=== PATIENT | male | born 1955 | race Caucasian/White ===

== ENCOUNTER → 2022-11-13 10:52 | Outpatient (BNVA) | payer MEDICARE, OTHER, SELFPAY | PROVIDERS: PCP Family Medicine; Visit Provider Nurse Practitioner Family | DX: R97.20 Elevated prostate specific antigen [PSA] (principal) | CPT/HCPCS: 99202 ==

== ENCOUNTER 2022-11-29 10:10 | Outpatient (REF) | payer MEDICARE, OTHER, SELFPAY ==
--- NOTE | ~2022-11-29 | US_ITS ---
EXAMINATION: US RETROPERITONEAL COMPLETE (RENAL) CLINICAL INFORMATION: Elevated PSA. COMPARISON: None available. TECHNIQUE: Real-time imaging of the kidneys and bladder. Limited visualization due to bowel gas and body habitus. FINDINGS: RIGHT KIDNEY: 11.1 x 5.5 x 4.9 cm (SAG x AP x TRV). No hydronephrosis. No renal calculi. Renal cortical thickness is normal. Limited visualization. LEFT KIDNEY: 11.5 x 5.6 x 4.7 cm (SAG x AP x TRV). No hydronephrosis. No renal calculi. Renal cortical thickness is normal. Limited visualization. Left 1.3 x 1.1 x 1.0 cm medial midpole cyst appears simple. There is no indication for follow-up imaging. BLADDER: Well distended. Bladder wall thickening of 0.8 cm. Diffuse irregularity of the bladder wall. Bilateral ureteral jets are demonstrated. Prevoid bladder volume is 154.1 mL. Postvoid bladder volume is 8.9 mL. ADDITIONAL FINDINGS: Prostate volume is 58.5 mL. US/US retroperitoneal comp IMPRESSION: Bladder wall thickening of 0.8 cm. Diffuse irregularity of the bladder wall.
== END 2022-11-29 10:11 | disposition home or self-care (01) ==
LOC: HO.US 10:10
PROVIDERS: PCP Family Medicine; Visit Provider Nurse Practitioner Family
DX: R97.20 Elevated prostate specific antigen [PSA] (principal)
CPT/HCPCS: 76770

== ENCOUNTER 2023-01-09 08:29 | Outpatient (AMB) | payer MEDICARE, OTHER, SELFPAY ==
--- NOTE | 2023-01-09 08:30 | A.OFFVIS_ITS ---
Intake Intake Visit Reasons: 1m/US/psa(set) Intake Note: Patient is present for follow up visit elevated psa (psa 7.7) Urology Medications: none Blood Thinners: none Sound Recordist Required: No Accompanied by: Self / Same As Patient Allergies No Known Allergies Allergy (Verified 01/09/23 10:46) Medication List - Last Reconciled 01/09/23 by GALINA De La Fuente- ascorbic acid (vitamin C) ER 1,000 mg PO DAILY atorvastatin 40 mg PO DAILY cholecalciferol (vitamin D3) 25 mcg PO DAILY levofloxacin 500 mg PO daily 3 days losartan 100 mg PO DAILY multivitamin 1 tab PO DAILY omeprazole 40 mg PO DAILY HPI HPI Comments History of Present Illness Details Idris is a pleasant 67 year old male patient of Dr. Cortes. He has a PMH of BPH, former smoker, hypertension, and mixed hyperlipidemia. He presents to the office today for follow-up. When asked he reports to be doing and feeling well. Of note, patient was seen approximately 2 months ago as a new patient for elevated PSA at which time a retroperitoneal ultrasound and redraw of PSA was ordered. These results were reviewed with the patient today. Right kidney with no calculi or hydronephrosis noted. Left kidney with no calculi or hydronephrosis. Left medial mid pole cyst appears simple. There is no indication for follow up of cyst per radiology report. The bladder is well distended. Bladder wall thickening of 0.8 cm. Diffuse irregularity of the bladder wall. Pre void bladder volume is approximately 150 mL. Postvoid bladder volume is approximately 10 mL. Prostate volume is approximately 60 mL. PSAs are as follows 08/26/21--5.4 11/18/2021--6.7 03/24/2022--6.1 12/2022--7.7 When asked patient reports to have followed up with [facility] the spring of last year at which time he believes he underwent a prostate biopsy. However, call to patient's Deyanira over the phone who states she believes it was a JEANA. When asked patient does report urinary frequency, urinary urgency and nocturia. However he reports this is not bothersome to him at this time. He denies incontinence, hematuria, dysuria, foul smelling urine, changes to urinary stream, flank pain, fever, and or chills. He is happy with his current voiding parameters. Discussed at length potential causes for elevated PSA. Discussed trial of finasteride versus prostate biopsy versus surveillance monitoring. Discussed risks and benefits of asformentioned interventions. JEANA offered however declined. Discussed bladder wall thickening and trial of medication however patient declines at this time. He otherwise offers no issues or concerns at this time. [facility]LY [facility] Medical History Benign localized hyperplasia of prostate with urinary obstruction and lower urinary tract symptoms BPH with elevated PSA Colon polyp Elevated PSA measurement Former smoker Hypertension Impaired fasting glucose Mixed hyperlipidemia Obesity Sexual dysfunction Surgical History History of knee surgery History of tonsillectomy and adenoidectomy Review of Systems Const All systems reviewed & are unremarkable except as noted in HPI and below Reports no additional complaints Eyes Reports no additional complaints ENT Reports no additional complaints Card Reports no additional complaints Physical Exam Const General: cooperative, healthy appearing, comfortable, no acute distress, well developed, alert and awake Orientation/consciousness: patient oriented x3 Limitations: no limitations HEENT Head: Yes normal to inspection, Yes normocephalic and Yes atraumatic Ears: hearing grossly normal bilaterally Eyes General: appearance normal, both eyes and all related structures Neck Neck: Yes normal visual inspection and Yes trachea midline Chest Chest palpation & inspection: normal inspection of the chest Resp Effort & Inspection: normal respiratory effort and able to speak in complete sentences Cardio Rate: regular rate GI Inspection: Yes normal to inspection General: Yes no CVA tenderness Back/Spine/Pelvis Back: no CVA tenderness Skin General skin exam: no rashes or lesions noted Neuro General: patient oriented x3 Extrem General: Yes normal to inspection Psych Appearance: grossly normal and well kempt Mental Status: mental status grossly normal Speech and movement: Normal speech and movement present and Clear speech present Affect: normal affect Attitude: cooperative Thought process: Normal thought process present Thought content: Normal thought content present Insight: Good insight present (Psych) Judgement: Good judgement present (Psych) Results AMB Urinalysis, Automated UA Leukoctes 0 Steven/uL Last Edit by Kianna Mayfield on 01/09/23 08:42 UA Nitrite Negative Last Edit by Kianna Mayfield on 01/09/23 08:42 UA Urobilinogen 0.2 mg/dL Last Edit by Kianna Mayfield on 01/09/23 08:42 UA Protein 15 mg/dL Last Edit by Kianna Mayfield on 01/09/23 08:42 UA pH 7.5 Last Edit by Kianna Mayfield on 01/09/23 08:42 UA Blood 0 Enoch/uL Last Edit by Kianna Mayfield on 01/09/23 08:42 UA Specific [place] 1.010 Last Edit by Kianna Mayfield on 01/09/23 08:42 UA Ketone Negative Last Edit by Kianna Mayfield on 01/09/23 08:42 UA Bilirubin 0 mg/dL Last Edit by Kianna Mayfield on 01/09/23 08:42 UA Glucose 0 mg/dL Last Edit by Kianna Mayfield on 01/09/23 08:42 Results Reviewed Results Reviewed: Laboratory Last Values Urine pH (Auto) 7.5 01/09/23 08:34 Specific [place] (Auto) 1.010 01/09/23 08:34 Urine Protein (Auto) 15 mg/dL 01/09/23 08:34 Glucose (UA)(Auto) 0 mg/dL 01/09/23 08:34 Urine Ketones (Auto) Negative 01/09/23 08:34 Urine Blood (Auto) 0 Enoch/uL 01/09/23 08:34 Urine Nitrite (Auto) Negative 01/09/23 08:34 Urine Bilirubin (Auto) 0 mg/dL 01/09/23 08:34 Urine Urobilinogen (Auto) 0.2 mg/dL 01/09/23 08:34 Leukocyte Esterase (Auto) 0 Steven/uL 01/09/23 08:34 Date of Service: 11/29/22 EXAMINATION: US RETROPERITONEAL COMPLETE (RENAL) FINDINGS: RIGHT KIDNEY: 11.1 x 5.5 x 4.9 cm (SAG x AP x TRV). No hydronephrosis. No renal calculi. Renal cortical thickness is normal. Limited visualization. LEFT KIDNEY: 11.5 x 5.6 x 4.7 cm (SAG x AP x TRV). No hydronephrosis. No renal calculi. Renal cortical thickness is normal. Limited visualization. Left 1.3 x 1.1 x 1.0 cm medial midpole cyst appears simple. There is no indication for follow-up imaging. BLADDER: Well distended. Bladder wall thickening of 0.8 cm. Diffuse irregularity of the bladder wall. Bilateral ureteral jets are demonstrated. Prevoid bladder volume is 154.1 mL. Postvoid bladder volume is 8.9 mL. ADDITIONAL FINDINGS: Prostate volume is 58.5 mL. IMPRESSION: Bladder wall thickening of 0.8 cm. Diffuse irregularity of the bladder wall. Assessment & Plan Assessment & Plan (1) Elevated PSA measurement: Code(s): R97.20 - Elevated prostate specific antigen [PSA] (2) Bladder wall thickening: Code(s): N32.89 - Other specified disorders of bladder (3) Benign prostatic hyperplasia with nocturia: Code(s): N40.1 - Benign prostatic hyperplasia with lower urinary tract symptoms; R35.1 - Nocturia (4) Renal cyst: Code(s): N28.1 - Cyst of kidney, acquired Plan: Plan Risks and benefits regarding trans rectal ultrasound with prostate biopsy were discussed.? Options of continued surveillance, no treatment and biopsy were offered. The risks include but are not limited to, urinary tract infection, sepsis, difficulty urinating, bleeding into the rectum or bladder that requires intervention and transfusion,and failure to diagnose prostate cancer. The patient understands the options and the risks involved. They wish to proceed. Printed information was provided to ensure he remains off anticoagulation for the appropriate length of time. He may require cardiology or PCP clearance.? An antibiotic will be administered prior to, and following the procedure Plan In office urinalysis results reviewed with the patient today; as noted above. Recent retroperitoneal ultrasound results reviewed with the patient today. Recent PSA results reviewed with the patient today. Discussed at length potential causes for elevated PSA Discussed at length finasteride versus prostate biopsy versus surveillance monitoring; discussed risks and benefits of these interventions Patient reports urinary frequency, urinary urgency, and nocturia however these symptoms are not bothersome at this time Discussed bladder wall thickening and irregularity noted on ultrasound Will schedule for prostate biopsy as discussed Antibiotic prescription provided; discussed taking antibiotics day before, day of, and day after procedure Follow-up prostate biopsy with Dr. Moya; or sooner with any issues, concerns, and or questions. Orders: Orders AMB Urinalysis Automated Today Z13.9 - Encounter for screening, unspecified Medications: New levofloxacin take 1 tablet day before procedure, 1 tablet day of procedure and 1 tablet day after procedure 500 mg PO daily 3 days 3 tabs 0RF Patient Instructions: The patient had an opportunity to ask questions regarding the treatment plan. All questions were answered. Physical exam, labs, and imaging were discussed and reviewed in detail. As well as risks, benefits, and discussion of treatment choices. No major barriers to understanding were identified. The patient expressed understanding and agreement with the above treatment plan. The patient was made aware they should contact our office by phone for worsening of their current condition, the appearance of new symptoms, or with any questions or concerns. Compliance is encouraged with any medications and follow up testing that is ordered. It is a privilege to be allowed the opportunity to participate in? your urological care.? Again, if you have any questions or concerns If you have any questions or concerns please do not hesitate to contact me. The office is [phone]. This note is constructed using voice recognition software. While every effort has been made to ensure accuracy performing arts technicians errors may have been included. Yours sincerely, RONY De La Fuente Coding Level of Care Code Est Pt Level 4 (07892) Diagnoses Elevated PSA measurement R97.20 Bladder wall thickening N32.89 Benign prostatic hyperplasia with nocturia N40.1; R35.1 Renal cyst N28.1
== END 2023-01-09 09:04 | disposition home or self-care (01) ==
PROVIDERS: PCP Family Medicine; Visit Provider Nurse Practitioner Family
DX: R97.20 Elevated prostate specific antigen [PSA] (principal); N32.89 Other specified disorders of bladder; N40.1 Benign prostatic hyperplasia with lower urinary tract symptoms; R35.1 Nocturia; N28.1 Cyst of kidney, acquired
CPT/HCPCS: 99214

== ENCOUNTER → 2023-01-09 08:29 | Outpatient (BNVA) | payer MEDICARE, OTHER, SELFPAY | PROVIDERS: PCP Family Medicine; Visit Provider Nurse Practitioner Family | DX: R97.20 Elevated prostate specific antigen [PSA] (principal); N40.1 Benign prostatic hyperplasia with lower urinary tract symptoms; R35.1 Nocturia; N32.89 Other specified disorders of bladder; N28.1 Cyst of kidney, acquired | CPT/HCPCS: 99212 ==

== ENCOUNTER 2023-03-15 07:17 | Outpatient (REF) | payer MEDICARE, OTHER, SELFPAY ==
[2023-03-15 07:40] VITALS: BMI 30.3
[2023-03-15 07:41] VITALS: BP 155/77; PULSE 89; RESP 16; TEMP 36.3; O2SAT 98
--- NOTE | 2023-03-15 08:38 | W.PM.OPN ---
Operative Note Operative Note Date of Service: 03/15/23 Narrative: Preoperative diagnosis: Elevated PSA Postoperative diagnosis: Elevated PSA Procedure: 1. transrectal ultrasound measurement of prostate 2. transrectal ultrasound-guided pudendal nerve block 3. transrectal ultrasound-guided prostate biopsy 12 core Surgeon: Dr. Yasmany Moya Anesthetic: Local Indications for procedure: Elevated PSA 7.7 Procedure: After informed consent was verified, the patient was brought into the procedure area and lay left-hand side down on the table. Patient identity confirmed. Perioperative antibiotics confirmed. Safety pause time out performed. JEANA performed to dilate rectal sphincter Iodine 10cc with Gel was placed per rectum Ultrasound probe was placed per rectum The prostate was measured in 3 dimensions Total volume equals 80 gm No cystic structures were noted No calcifications were noted at the surgical margin The prostate was otherwise homogeneous in nature An ultrasound-guided pudendal nerve block was performed using 10 cc of 1% lidocaine. 8 cc was placed at the base and 2 cc of the apex. A 12 core biopsy was performed with 6 cores each side. Two cores were taken at the apex, mid and base. Cores were spaced between lateral and medial. He tolerated the procedure well. Was able to ambulate to bathroom after 5 minutes. Printed instructions regarding antibiotic use and common side effects such as low-grade temperature, potential infection and bleeding were given Pathology: 12 core prostate biopsy.
[2023-03-15 08:46] VITALS: BP 139/76; PULSE 95; RESP 16; O2SAT 99
== END 2023-03-15 07:18 | disposition home or self-care (01) ==
LOC: HO.MS 07:17
PROVIDERS: PCP Family Medicine; Visit Provider Urology
PROC: (CPT 55700; principal; 2023-03-15 08:00)
DX: C61 Malignant neoplasm of prostate (principal); N42.31 Prostatic intraepithelial neoplasia; R97.20 Elevated prostate specific antigen [PSA]
CPT/HCPCS: 55700; 76942; 88305

== ENCOUNTER → 2023-03-15 07:17 | Outpatient (BNV) | payer MEDICARE, OTHER, SELFPAY | PROVIDERS: PCP Family Medicine; Visit Provider Urology | DX: R97.20 Elevated prostate specific antigen [PSA] (principal) | CPT/HCPCS: 55700; 76942 ==

== ENCOUNTER 2023-03-28 12:47 | Outpatient (AMB) | payer MEDICARE, OTHER, SELFPAY ==
--- NOTE | 2023-03-28 12:52 | A.OFFVIS_ITS ---
Intake Intake Visit Reasons: biopsy results Intake Note: Patient is Present for Telephone Follow Up Urology Med: None Antibiotic Allergy: None Blood Thinner: None Pharamcy: [facility] Allergies No Known Allergies Allergy (Verified 03/28/23 13:09) Medication List - Last Reconciled 03/28/23 by Yasmany Moya MD ascorbic acid (vitamin C) ER 1,000 mg PO DAILY atorvastatin 40 mg PO DAILY cholecalciferol (vitamin D3) 25 mcg PO DAILY finasteride 5 mg PO DAILY 90 days levofloxacin 500 mg PO daily 3 days losartan 100 mg PO DAILY multivitamin 1 tab PO DAILY omeprazole 40 mg PO DAILY HPI HPI Comments History of Present Illness Details Idris is a pleasant male. He is a patient of Dr. Cortes. He is seen for the following urologic conditions - elevated PSA - prostate cancer Telemedicine Evaluation 15 min Consultation DoximZapMe Sepideh Video attempted Tolerated biopsy Results discussed Plan on prostate MRI and prostate cancer genetics Start finasteride 4 month follow-up labs Prostate Cancer - Low volume, Grade Group 3 (Intermediate Risk) 03/19 PSA diagnosis 7.7 Size on TRUS 80 g BPH with diffuse thickening of bladder wall Histologic type: Adenocarcinoma, acinar type Histologic grade: [place] score: 4+3=7 20% single core Number cores positive: 1 Total number of cores: 12 % of tissue involved: Less than 5% of all tissue examined Periprostatic fat inv. LVI, PNI : Not identified Prostate Cancer Therapy Discussion today focused on treatment options for prostate cancer. The patient has already reviewed educational materials that had been provided to him in printed form. The NCCN criteria for imaging, molecular testing and germ line testing were discussed. Prognostic Model Information calculated using STAR-CAPS [email or web address] Stage Prediction IIA 5yr Specific Mortality 0.9% 10yr Specfic Mortality 3.3% The discussion was then focused on therapeutic options which include 1) Deferred therapy/active surveillance. Recommended in the setting of low volume, very low risk and low risk disease. Criteria include 3 cores all less, same side, no core greater than 50% disease. Evaluation may be augmented with imaging such as pelvic MRI and genetic evaluation of biopsy material. Somatic tissue genetic testing such as Prolaris, which focuses on tumor-specific pathogenic variants that may identify an indication for further germline testing and can guide therapeutic decisions in the setting of low risk and low volume disease. - The patient is a candidate for active surveillance. NCCN Prostate Cancer Guideline 4.2022 PROS-F Page 2 PRINCIPLES OF ACTIVE SURVEILLANCE AND OBSERVATION Confirmatory Testing to Establish Appropriateness of Active Surveillance: - Goals of confirmatory testing are to h elp facilitate early identification of those patients who may be at a higher risk of future grade reclassification or cancer progression. - Since an initial prostate biopsy may u nderestimate tumor grade or volume, confirmatory testing is strongly recommended within the first 6 to 12 months of diagnosis for patients who are considering active surveillance. - Options for confirmatory testing inclu de prostate biopsy, mpMRI with calculation of PSA density (and repeat biopsy as indicated), and/or molecular tumor analysis, see Principles of Risk Stratification (PROS-D). - Early confirmatory testing may not be necessary in patients who have had an mpMRI prior to diagnostic biopsy. ?All patients should undergo a confirmatory prostate biopsy within 1?2 years of their diagnostic biopsy 2) Targeted Cryotherapy Ablation. The t echnique of cryotherapy was described. PSA free progression rates were discussed. Suitable candidates in general have low volume grade group 1 or grade group 2 disease. Typically pelvic MRI with targeted mapping biopsies are required for treatment planning. - The patient is a candidate for image g uided targeted cryotherapy ablation. 3) Robotic Prostatectomy. Salient featu res of the patient's PSA, [place] score and disease stage were applied to the [facility] [employer] nomogram. Relevant rates of extracapsular extension, seminal vesicle involvement raya involvement with discussed. Pathologic up staging and down staging on final specimen was discussed. Salient features of the procedure, hospitalization and recovery were discussed. - The patient is not a candidate for del otic prostatectomy. 4) Radiation therapy was described. IMR T, hyperfractionated therapy, permanent seed implant with all without concomitant androgen deprivation therapy and rectal protection were discussed. There is a small separation regarding cancer control between radiation and prostatectomy at approximately 15 years. There is an evolving preference for hyper fractionated therapy. This gives the same radiation total dose in a reduced number of individual treatment sessions. This approach is associated with higher risks of rectal bleeding. To ameliorate these risks injection of a spacer gel posterior to the prostate has been advocated. This is only indicated in patients without evidence of extracapsular extension posteriorly, and should be considered with caution where disease is primary grade 4. Brachytherapy was described in detail. Typically this is a same day procedure. Therapy is typically well tolerated and gives good control for low-risk prostate cancer and cancer that does not involve neurovascular invasion. - The patient is a candidate for brachyt herapy or external beam Different risks were described for each therapeutic option. Ranges from the published literature were discussed. Consequent morbidity and treatment to address complications were discussed. These include - robotic prostatectomy - Typically pat ients are in hospital for one day and miss 4 weeks of work. The importance of preoperative walking and Kegel exercises was stressed. Complications, including but not limited to; acute complications regarding blood loss, transfusion, DVT, ileus, wound infection and potential mortality. Long-term complications such as impotence, UTI, urethral stricture, bladder neck contracture, incontinence. Penile shrinkage and chronic pain were discussed and reviewed. - radiation - IMRT typically this takes 25-40 daily treatments administered on a Sunday through Sunday sequence. Treatment is normally well tolerated. associated side effects include urge, frequency, dysuria, hematuria, loose bowels and fatigue, particularly toward the end of therapy. These can be ameliorated to some degree with medication. Long-term risks regarding impotence and a small risk of chronic urinary urge and incontinence were discussed - brachytherapy General anesthesia is us ed. Radioactive seeds are placed. There may be a required planning visit. Risks regarding anesthesia with DVT, PE, infection, urinary retention, urgency, and frequency were discussed. Long-term risks include bladder neck contraction, impotence, urge, potential for secondary cancer of the bladder base The patient has Grade Group 3 pT1c prostate cancer disease Based on the patient's age, comorbidities and personal preferences reasonable treatment options include all options available The patient is not a candidate for germline testing in accordance with the NCCN guideline References: Kimberley RT, Yovani K, Freddy COLE, et al. Development and Validation of a Clinical Prognostic Stage Group System.?[employer]. doi: [email or web address] [facility] Medical History Sexual dysfunction Obesity Mixed hyperlipidemia Impaired fasting glucose Hypertension Former smoker Elevated PSA measurement Colon polyp BPH with elevated PSA Benign localized hyperplasia of prostate with urinary obstruction and lower urinary tract symptoms Surgical History History of tonsillectomy and adenoidectomy History of knee surgery Review of Systems Const All systems reviewed & are unremarkable except as noted in HPI and below Reports no additional complaints Resp Reports no additional complaints GI Reports no additional complaints Reports as per HPI Musc Reports no additional complaints Physical Exam Telemedicine evaluation Appropriate responses Regular breathing rate and rhythm HEENT Head: Yes normal to inspection Ears: hearing grossly normal bilaterally Eyes General: appearance normal, both eyes and all related structures Neck Neck: Yes normal visual inspection Chest Chest palpation & inspection: normal inspection of the chest Resp Effort & Inspection: normal respiratory effort and able to speak in complete sentences Assessment & Plan Assessment & Plan (1) Prostate cancer: Code(s): C61 - Malignant neoplasm of prostate Plan Four month follow-up MRI Prolaris genetic assesment Orders: Orders Prostate Specific Antigen 4 Months C61 - Malignant neoplasm of prostate MR pelvis wo/w con 4 Months C61 - Malignant neoplasm of prostate Blood Urea Nitrogen 4 Months C61 - Malignant neoplasm of prostate Creatinine 4 Months C61 - Malignant neoplasm of prostate Medications: New finasteride 5 mg PO DAILY 90 days 90 tabs 1RF N13.8 - Other obstructive and reflux uropathy, N40.1 - Benign prostatic hyperplasia with lower urinary tract symptoms, R33.9 - Retention of urine, unspecified, R35.1 - Nocturia Patient Instructions: Imaging studies, laboratory and physical exam results were discussed and reviewed in detail. No major barriers to patient understanding were identified. An opportunity to ask questions regarding the treatment plan was provided. All questions were answered. The patient expressed understanding and agreement with the above treatment plan. The patient is aware they should contact our office by phone for worsening of their current condition or the appearance of new urologic symptoms. Compliance is encouraged with any medications and followup testing that is ordered. It is a privilege to participate in the urologic care of your patient. If you have any questions or concerns regarding treatment for the above conditions, or other urologic issues, please do not hesitate to contact me. The office telephone contact is [phone]. This note is constructed using voice recognition software. While every effort has been made to ensure accuracy contact center team lead errors may have been included. Yours sincerely, Dr Yasmany Moya MD, [facility] - Urology Providers of Expert, Compassionate Care for the Genitourinary System Telehealth Telehealth Location of provider rendering services: practice address Location of patient: address on file Patient Identification confirmed using: Name, : Yes Telehealth method: video Patient verbally consented to treatment: Yes Patient verbally consented to billing insurance company: Yes Patient informed of any privacy concerns related to visit: Yes Coding Level of Care Code Tele Est Pt Level 4 (72339) Diagnoses Prostate cancer C61
== END 2023-03-28 15:59 | disposition home or self-care (01) ==
LOC: HO.HUSH 12:47
PROVIDERS: PCP Family Medicine; Visit Provider Urology
DX: C61 Malignant neoplasm of prostate (principal)
CPT/HCPCS: 99214

== ENCOUNTER → 2023-03-28 12:47 | Outpatient (BNVA) | payer MEDICARE, OTHER, SELFPAY | PROVIDERS: PCP Family Medicine; Visit Provider Urology ==

== ENCOUNTER 2023-08-09 12:36 | Outpatient (REF) | payer MEDICARE, OTHER, SELFPAY ==
[2023-08-09 14:02] LABS: Blood Urea Nitrogen 17 mg/dL (9-16); Estimated Glomerular Filt Rate > 60
[2023-08-09 14:20] LABS: Prostate Specific Antigen 3.86 ng/mL (<0.05-4.0)
== END 2023-08-09 12:37 | disposition home or self-care (01) ==
LOC: HO.LAB 12:36
PROVIDERS: PCP Family Medicine; Visit Provider Urology
DX: C61 Malignant neoplasm of prostate (principal); Z12.5 Encounter for screening for malignant neoplasm of prostate
CPT/HCPCS: 36415; 82565; 84153; 84520

== ENCOUNTER 2023-08-14 10:25 | Outpatient (AMB) | payer MEDICARE, OTHER, SELFPAY ==
--- NOTE | 2023-08-14 10:25 | A.OFFVIS_ITS ---
Intake Intake Visit Reasons: MRI/PSA Follow Up(set)vm confirm Allergies No Known Allergies Allergy (Verified 08/14/23 10:25) Medication List - Last Reconciled 08/14/23 by Yasmany Moya MD ascorbic acid (vitamin C) ER 1,000 mg PO DAILY atorvastatin 40 mg PO DAILY cholecalciferol (vitamin D3) 25 mcg PO DAILY finasteride 5 mg PO DAILY 90 days levofloxacin 500 mg PO daily 3 days losartan 100 mg PO DAILY multivitamin 1 tab PO DAILY omeprazole 40 mg PO DAILY HPI HPI Comments History of Present Illness Details Idris is a pleasant male. He is a patient of Dr. Cortes. He is seen for the following urologic conditions - elevated PSA - prostate cancer Telemedicine Evaluation 15 min Consultation [employer] Sepideh Video attempted Four month follow-up PSA has dropped to 3.8 Discussed MRI results - difficult to delineate lesion Discussed Prolaris - unfavorable intermediate recommend single modal therapy how ever 10 year DSM 6.6% Continue surveillance - try 4 months without finasteride Prostate Cancer - Low volume, Grade Group 3 (Intermediate Risk) 03/19 PSA diagnosis 7.7 Size on TRUS 80 g BPH with diffuse thickening of bladder wall MRI - 50 g prostate 9 mm peripheral zone left mid PI-RADS 2 Prolaris - 04/19 - unfavorable intermediate recommend single modal therapy ho wever 10 year DSM 6.6% Histologic type: Adenocarcinoma, acinar type Histologic grade: Cindy score: 4+3=7 20% single core RMM Number cores positive: 1 Total number of cores: 12 % of tissue involved: Less than 5% of all tissue examined Periprostatic fat inv. LVI, PNI : Not identified PFSH Medical History Sexual dysfunction Obesity Mixed hyperlipidemia Impaired fasting glucose Hypertension Former smoker Elevated PSA measurement Colon polyp BPH with elevated PSA Benign localized hyperplasia of prostate with urinary obstruction and lower urinary tract symptoms Surgical History History of tonsillectomy and adenoidectomy History of knee surgery Review of Systems Const All systems reviewed & are unremarkable except as noted in HPI and below Reports no additional complaints Resp Reports no additional complaints GI Reports no additional complaints Reports as per HPI Musc Reports no additional complaints Physical Exam Telemedicine evaluation Appropriate responses Regular breathing rate and rhythm HEENT Head: Yes normal to inspection Ears: hearing grossly normal bilaterally Eyes General: appearance normal, both eyes and all related structures Neck Neck: Yes normal visual inspection Chest Chest palpation & inspection: normal inspection of the chest Resp Effort & Inspection: normal respiratory effort and able to speak in complete sentences Assessment & Plan Assessment & Plan (1) Prostate cancer: Code(s): C61 - Malignant neoplasm of prostate Plan Four month follow-up Orders: Orders PSA,Total (Free>4and<10) 4 Months C61 - Malignant neoplasm of prostate Patient Instructions: Imaging studies, laboratory and physical exam results were discussed and reviewed in detail. No major barriers to patient understanding were identified. An opportunity to ask questions regarding the treatment plan was provided. All questions were answered. The patient expressed understanding and agreement with the above treatment plan. The patient is aware they should contact our office by phone for worsening of their current condition or the appearance of new urologic symptoms. Compliance is encouraged with any medications and followup testing that is ordered. It is a privilege to participate in the urologic care of your patient. If you have any questions or concerns regarding treatment for the above conditions, or other urologic issues, please do not hesitate to contact me. The office telephone contact is [phone]. This note is constructed using voice recognition software. While every effort has been made to ensure accuracy semiconductors wafer breaker errors may have been included. Yours sincerely, Dr Yasmany Moya MD, [facility] - Urology Providers of Expert, Compassionate Care for the Genitourinary System Telehealth Telehealth Location of provider rendering services: practice address Location of patient: address on file Patient Identification confirmed using: Name, : Yes Telehealth method: video Patient verbally consented to treatment: Yes Patient verbally consented to billing insurance company: Yes Patient informed of any privacy concerns related to visit: Yes Coding Level of Care Code Tele Est Pt Level 4 (25411) Diagnoses Prostate cancer C61
== END 2023-08-14 11:26 | disposition home or self-care (01) ==
LOC: HO.HUSH 10:25
PROVIDERS: PCP Family Medicine; Visit Provider Urology
DX: C61 Malignant neoplasm of prostate (principal)
CPT/HCPCS: 99213

== ENCOUNTER → 2023-08-14 10:25 | Outpatient (BNVA) | payer MEDICARE, OTHER, SELFPAY | PROVIDERS: PCP Family Medicine; Visit Provider Urology ==

== ENCOUNTER 2023-12-13 10:15 | Outpatient (AMB) | payer MEDICARE, OTHER, SELFPAY ==
--- NOTE | 2023-12-13 10:28 | MHC.OFFVIS ---
Intake Visit Reasons: 4M PSA(set) Intake Note: Patient presents for follow up on: Elevated PSA PSA: 7.86 Urology Med: None Antibiotic Allergy: None Blood Thinner: None Pharamcy: [employer] Director Required: No Accompanied by: Self / Same As Patient Allergies No Known Allergies Allergy (Verified 12/13/23 10:37) HPI Comments Details: Idris is a pleasant male. He is a patient of Dr. Cortes. He is seen for the following urologic conditions - elevated PSA - prostate cancer PSA 08/18 3.9, 12/18 7.2 7% Restart finasteride Four month follow-up Did discuss targeted therapy Would be good candidate Prostate Cancer - Low volume, Grade Group 3 (Intermediate Risk) 03/19 PSA diagnosis 7.7 Size on TRUS 80 g BPH with diffuse thickening of bladder wall MRI - 50 g prostate 9 mm peripheral zone left mid PI-RADS 2 Prolaris - 04/19 - unfavorable intermediate recommend single modal therapy however 10 year DSM 6.6% Histologic type: Adenocarcinoma, acinar type Histologic grade: [place] score: 4+3=7 20% single core RMM Number cores positive: 1 Total number of cores: 12 % of tissue involved: Less than 5% of all tissue examined Periprostatic fat inv. LVI, PNI : Not identified PFSH Medical History Sexual dysfunction Obesity Mixed hyperlipidemia Impaired fasting glucose Hypertension Former smoker Elevated PSA measurement Colon polyp BPH with elevated PSA Benign localized hyperplasia of prostate with urinary obstruction and lower urinary tract symptoms Surgical History History of tonsillectomy and adenoidectomy History of knee surgery Review of Systems Const Denies chills and Denies fever(s) Card Reports no additional complaints and Denies syncope Resp Denies cough GI Denies abdominal pain and Denies heartburn Reports as per HPI and Denies change in libido Neuro Denies syncope Psych Denies change in libido Endo Denies change in libido Physical Exam Const General: cooperative, healthy appearing, comfortable and no acute distress Orientation/consciousness: patient oriented x3 HEENT Face and sinus: Yes normal facial exam Mouth: moist mucous membranes Neck Neck: Yes normal visual inspection, Yes full ROM and Yes trachea midline Chest Chest palpation & inspection: normal inspection of the chest Resp Effort & Inspection: normal respiratory effort, able to speak in complete sentences and no respiratory distress GI Inspection: Yes normal to inspection Back/Spine/Pelvis Cervical Spine: normal cervical lordosis Thoracic/Lumbar Spine: thoracic and lumbar spine normal to inspection Skin General skin exam: no rashes or lesions noted Neuro General: patient oriented x3, gait normal, tone normal and moves all extremities Extrem General: Yes normal to inspection and Yes capillary refill normal Assessment & Plan Assessment & Plan (1) Prostate cancer: Code(s): C61 - Malignant neoplasm of prostate Category: Medical Plan Four month follow-up PSA Orders: Orders PSA,Total (Free>4and<10) 4 Months N40.1 - Benign prostatic hyperplasia with lower urinary tract symptoms, R35.1 - Nocturia Medications: New finasteride 5 mg PO DAILY 90 days 90 tabs 1RF N13.8 - Other obstructive and reflux uropathy, N40.1 - Benign prostatic hyperplasia with lower urinary tract symptoms, R33.9 - Retention of urine, unspecified, R35.1 - Nocturia Patient Instructions: Imaging studies, laboratory and physical exam results were discussed and reviewed in detail. No major barriers to patient understanding were identified. An opportunity to ask questions regarding the treatment plan was provided. All questions were answered. The patient expressed understanding and agreement with the above treatment plan. The patient is aware they should contact our office by phone for worsening of their current condition or the appearance of new urologic symptoms. Compliance is encouraged with any medications and followup testing that is ordered. It is a privilege to participate in the urologic care of your patient. If you have any questions or concerns regarding treatment for the above conditions, or other urologic issues, please do not hesitate to contact me. The office telephone contact is [phone]. This note is constructed using voice recognition software. While every effort has been made to ensure accuracy application systems engineer errors may have been included. Yours sincerely, Dr Yasmany Moya MD, [facility] - Urology Providers of Expert, Compassionate Care for the Genitourinary System Coding Level of Care Code Est Pt Level 3 (08866) Diagnoses Prostate cancer C61
== END 2023-12-13 10:49 | disposition home or self-care (01) ==
PROVIDERS: PCP Family Medicine; Visit Provider Urology
DX: C61 Malignant neoplasm of prostate (principal)
CPT/HCPCS: 99213

== ENCOUNTER → 2023-12-13 10:15 | Outpatient (BNVA) | payer MEDICARE, OTHER, SELFPAY | PROVIDERS: PCP Family Medicine; Visit Provider Urology | DX: N40.1 Benign prostatic hyperplasia with lower urinary tract symptoms (principal); R33.8 Other retention of urine; N13.8 Other obstructive and reflux uropathy; R35.1 Nocturia; C61 Malignant neoplasm of prostate | CPT/HCPCS: 99212 ==

== ENCOUNTER 2024-04-01 09:11 | Outpatient (REF) | payer MEDICARE, OTHER, SELFPAY ==
[2024-04-01 11:59] LABS: PSA,Total (Free>4and<10) 4.73 ng/mL (0.00-4.00)
== END 2024-04-01 09:12 | disposition home or self-care (01) ==
LOC: HO.LAB 09:11
PROVIDERS: PCP Family Medicine; Visit Provider Urology
DX: N40.1 Benign prostatic hyperplasia with lower urinary tract symptoms (principal); R35.1 Nocturia; Z12.5 Encounter for screening for malignant neoplasm of prostate
CPT/HCPCS: 36415; 84153; 84154

== ENCOUNTER 2024-04-09 09:03 | Outpatient (AMB) | payer MEDICARE, OTHER, SELFPAY ==
--- NOTE | 2024-04-09 09:05 | MHC.OFFVIS ---
Intake Visit Reasons: 4M PSA Free/Total(Pending) Intake Note: Patient is Present for Telephone PSA Follow up Urology Med: Finasteride Antibiotic Allergies: None Blood Thinner: None 04/01/2024 - Total PSA- 4.73(H) Free PSA- Pending %Free PSA- Pending Quill Fixer Required: No Accompanied by: Self / Same As Patient Allergies No Known Allergies Allergy (Verified 04/09/24 09:06) HPI Comments Details: Idris is a pleasant male. He is a patient of Dr. Cortes. He is seen for the following urologic conditions - elevated PSA - prostate cancer Telemedicine Evaluation 15 min Consultation [employer] Sepideh Video PSA has fallen on finasteride over 4 months PSA 08/18 3.9, 12/18 7.2 7%, 04/01 4.6 on Free Move to cycling finasteride Four month follow-up Prostate Cancer - Low volume, Grade Group 3 (Intermediate Risk) 03/19 PSA diagnosis 7.7 Size on TRUS 80 g BPH with diffuse thickening of bladder wall MRI - 08/18 - 50 g prostate 9 mm peripheral zone left mid PI-RADS 2 Prolaris - 04/19 - unfavorable intermediate recommend single modal therapy however 10 year DSM 6.6% Histologic type: Adenocarcinoma, acinar type Histologic grade: [place] score: 4+3=7 20% single core RMM Number cores positive: 1 Total number of cores: 12 % of tissue involved: Less than 5% of all tissue examined Periprostatic fat inv. LVI, PNI : Not identified PFSH Medical History Sexual dysfunction Obesity Mixed hyperlipidemia Impaired fasting glucose Hypertension Former smoker Elevated PSA measurement Colon polyp BPH with elevated PSA Benign localized hyperplasia of prostate with urinary obstruction and lower urinary tract symptoms Surgical History History of tonsillectomy and adenoidectomy History of knee surgery Review of Systems Const All systems reviewed & are unremarkable except as noted in HPI and below Reports no additional complaints Resp Reports no additional complaints GI Reports no additional complaints Reports as per HPI Musc Reports no additional complaints Physical Exam Telemedicine evaluation Appropriate responses Regular breathing rate and rhythm HEENT Head: Yes normal to inspection Ears: hearing grossly normal bilaterally Eyes General: appearance normal, both eyes and all related structures Neck Neck: Yes normal visual inspection Chest Chest palpation & inspection: normal inspection of the chest Resp Effort & Inspection: normal respiratory effort and able to speak in complete sentences Telehealth Telehealth Telehealth Platform: [employer] Location of provider rendering services: practice address Location of patient: address on file Patient Identification confirmed using: Name, : Yes Telehealth method: video Patient verbally consented to treatment: Yes Patient verbally consented to billing insurance company: Yes Patient informed of any privacy concerns related to visit: Yes Minutes spent on Phone/Video with Pt.: 15 Assessment & Plan Assessment & Plan (1) Prostate cancer: Code(s): C61 - Malignant neoplasm of prostate Category: Medical (2) Benign prostatic hyperplasia with nocturia: Code(s): N40.1 - Benign prostatic hyperplasia with lower urinary tract symptoms; R35.1 - Nocturia Category: Medical Plan Four month follow-up Orders: Orders PSA,Total (Free>4and<10) 4 Months C61 - Malignant neoplasm of prostate Patient Instructions: Imaging studies, laboratory and physical exam results were discussed and reviewed in detail. No major barriers to patient understanding were identified. An opportunity to ask questions regarding the treatment plan was provided. All questions were answered. The patient expressed understanding and agreement with the above treatment plan. The patient is aware they should contact our office by phone for worsening of their current condition or the appearance of new urologic symptoms. Compliance is encouraged with any medications and followup testing that is ordered. It is a privilege to participate in the urologic care of your patient. If you have any questions or concerns regarding treatment for the above conditions, or other urologic issues, please do not hesitate to contact me. The office telephone contact is [phone]. This note is constructed using voice recognition software. While every effort has been made to ensure accuracy oil house attendant errors may have been included. Yours sincerely, Dr Yasmany Moya MD, [facility] - Urology Providers of Expert, Compassionate Care for the Genitourinary System Coding Level of Care Code Tele Est Pt Level 3 (79349) Diagnoses Prostate cancer C61 Benign prostatic hyperplasia with nocturia N40.1; R35.1
== END 2024-04-09 09:55 | disposition home or self-care (01) ==
LOC: HO.HUSH 09:03
PROVIDERS: PCP Family Medicine; Visit Provider Urology
DX: C61 Malignant neoplasm of prostate (principal); N40.1 Benign prostatic hyperplasia with lower urinary tract symptoms; R35.1 Nocturia
CPT/HCPCS: 99213

== ENCOUNTER → 2024-04-09 09:03 | Outpatient (BNVA) | payer MEDICARE, OTHER, SELFPAY | PROVIDERS: PCP Family Medicine; Visit Provider Urology ==

== ENCOUNTER 2024-04-29 08:07 | Day surgery (SDC) | payer MEDICARE, OTHER, SELFPAY ==
[2024-04-23 13:30] VITALS: BMI 29.9
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
[2024-04-29 08:54] VITALS: BP 161/77; PULSE 74; RESP 16; TEMP 37; O2SAT 99; BMI 29.7
[2024-04-29] MEDS: Lactated Ringers 1,000 ML 100 ML IVCONT (09:05)
--- NOTE | 2024-04-29 09:58 | MHC.SHP ---
Pre-Procedural Eval Section A - 24 Hr Update-Section A only Date of Service: 04/29/24 The patient is an INPATIENT: No Changes since office visit: No Cold of Flu in the past 2 weeks, No New Medical Problems, No Changes in Medication and No Patient answered all questions The patient has been examined within 24 hours of the surgical procedure. The History & Physical has been completed within 30 days and I have reviewed it.: Yes Section B - Complete if H&P > 30 days Chief Complaint: Encounter for screening for malignant neoplasm of Allergies: Allergies Allergy/AdvReac Type Severity Reaction Status Date / Time No Known Allergies Allergy Verified 04/09/24 09:06 Plan I have reviewed the history and physical and performed a pertinent physical examination on my patient. No changes have occurred unless specified. Time Spent With Patient Time: Total time managing care of this patient today ____ minutes.
[2024-04-29 10:34] VITALS: BP 110/54; PULSE 92; RESP 16; TEMP 36.4; O2SAT 97
[2024-04-29 10:42] VITALS: BP 120/63; PULSE 89; RESP 16; TEMP 36.4; O2SAT 99
--- NOTE | 2024-04-29 10:42 | OP_ITS ---
DATE OF SERVICE: 04/29/2024 SURGEON: Amari Finney MD INDICATIONS: Colon cancer screening. PREOPERATIVE DIAGNOSIS: POSTOPERATIVE DIAGNOSIS: PROCEDURE PERFORMED: Colonoscopy to the terminal ileum with biopsy and snare polypectomy. ESTIMATED BLOOD LOSS: COMPLICATIONS: ANESTHESIA: Monitored anesthesia care. ASSISTANTS: SPECIMENS: DESCRIPTION OF PROCEDURE: A history and physical were performed. The risks and benefits of the procedure were explained to the patient. Informed consent was obtained. The patient was placed in the left lateral decubitus position. A digital rectal exam was performed and was found to be normal. The Olympus pediatric video colonoscope was introduced into the rectum and advanced to the cecum. The cecum was identified by transillumination, palpation, and identification of ileocecal valve. Examination was performed, and the scope was removed. He tolerated the procedure well and was returned to the recovery area in stable condition. FINDINGS: The terminal ileum was examined and appeared normal. The visualized colonic mucosa was normal. The quality of prep was fair with some residual stool streaking the mucosa in the descending and sigmoid colon. This was washed and suctioned as best possible. There was a 2 cm lipoma in the right colon, above the ileocecal valve, which was biopsied. Multiple colonic polyps were identified and removed with a combination of biopsy forceps, cold snare and hot snare. These were located at 80 cm; 60 cm; 2 at 50 cm and 2 in the rectum. The largest rectal polyp measured approximately 10 mm; this appeared hyperplastic. The others were less than 10 mm. There was mild sigmoid diverticulosis. Retroflexed examination showed moderate-sized internal hemorrhoids. IMPRESSION: Colon polyps. RECOMMENDATION: Follow up the biopsy results. MD PHUONG Aponte/JULIANL / [phone]
== END 2024-04-29 11:01 | disposition home or self-care (01) ==
PROVIDERS: PCP Family Medicine; Visit Provider Internal Medicine Gastroenterology
PROC: 0DJD8ZZ Inspection of Lower Intestinal Tract, Via Natural or Artificial Opening Endoscopic (ICD-10-PCS; CPT 45378; principal; 2024-04-29 10:10)
DX: Z12.11 Encounter for screening for malignant neoplasm of colon (principal); Z86.0101 Personal history of adenomatous and serrated colon polyps; D12.4 Benign neoplasm of descending colon; D12.5 Benign neoplasm of sigmoid colon; K62.1 Rectal polyp; D17.5 Benign lipomatous neoplasm of intra-abdominal organs; K57.30 Diverticulosis of large intestine without perforation or abscess without bleeding; K64.8 Other hemorrhoids; K76.0 Fatty (change of) liver, not elsewhere classified; K21.9 Gastro-esophageal reflux disease without esophagitis; I10 Essential (primary) hypertension; E78.5 Hyperlipidemia, unspecified; N40.1 Benign prostatic hyperplasia with lower urinary tract symptoms; R35.1 Nocturia; C61 Malignant neoplasm of prostate; Z79.899 Other long term (current) drug therapy; Z87.891 Personal history of nicotine dependence
CPT/HCPCS: 45385; 45380; 88305; J2003; J2704

== ENCOUNTER 2024-08-13 08:59 | Outpatient (REF) | payer MEDICARE, OTHER, SELFPAY ==
[2024-08-13 11:33] LABS: PSA,Total (Free>4and<10) 6.52 ng/mL (0.00-4.00)
[2024-08-18 11:07] LABS: Free Prostate Spec Ag 1.1 ng/mL; Percent Free Prostate Spec Ag 17 % (calc) (>25); Prostate Specific Ag Total 6.3 ng/mL (< OR = 4.0)
== END 2024-08-13 09:00 | disposition home or self-care (01) ==
LOC: HO.LAB 08:59
PROVIDERS: PCP Family Medicine; Visit Provider Urology
DX: C61 Malignant neoplasm of prostate (principal); Z12.5 Encounter for screening for malignant neoplasm of prostate
CPT/HCPCS: 36415; 84153; 84154

== ENCOUNTER 2024-08-22 09:32 | Outpatient (AMB) | payer MEDICARE, OTHER, SELFPAY ==
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
== END 2024-08-22 10:32 | disposition home or self-care (01) ==
LOC: HO.HUSH 09:33
PROVIDERS: PCP Family Medicine; Visit Provider Urology
DX: C61 Malignant neoplasm of prostate (principal)
CPT/HCPCS: 99213; G2211

== ENCOUNTER → 2024-08-22 09:32 | Outpatient (BNVA) | payer MEDICARE, OTHER, SELFPAY | PROVIDERS: PCP Family Medicine; Visit Provider Urology | DX: C61 Malignant neoplasm of prostate (principal) | CPT/HCPCS: 51798 ==

== ENCOUNTER 2024-12-15 08:43 | Outpatient (REF) | payer MEDICARE, OTHER, SELFPAY ==
--- OUTSIDE RECORDS SUMMARY | 2024-04-29 06:10 | XMS_ITS ---
Author Organization [facility] Address [address] [place] [id number] Care Team Providers Care Irrigation System Installer Name Role Phone ANDERS PECK, RAFAT Primary Care Provider Amari Richard Jr [phone] REASON FOR VISIT screening Encounters Encounter Location Date Provider Diagnosis [facility] [place] [address] [place] [id number] 04/29/2024 Amari Finney Jr Colon cancer screening Z12.11 ; Personal history of colonic polyps Z86.0100 and Colon polyps K63.5 Assessments Encounter Date Diagnosis (ICD Code) Assessment Notes Treatment Notes Treatment Clinical Notes Section Notes 04/29/2024 Colon cancer screening (ICD-10 - Z12.11) 04/29/2024 Personal history of colonic polyps (ICD-10 - Z86.0100) 04/29/2024 Colon polyps (ICD-10 - K63.5) Plan Of Treatment No Information Progress Notes * ALYSIA DERAS RDOB:1955 (69 yo M)Acc No.[id number]:04/29/2024 COLON WITH MAC Patient: ALYSIA NEAL Provider: Raul Finney MD :1955 A ge:68 Y S ex:Male Date:04/29/2024 Address: [id number] Pcp:RAFAT MCNAMARA MD Subjective: * Chief Complaints: * 1 . Screening. * Medical History: Objective: * Vitals: Assessment: * Assessment: 1. C olon cancer screening - Z12.11 (Primary) 2 . P ersonal history of colonic polyps - Z86.0100 3 . C olon polyps - K63.5 Plan: * Treatment: * Procedure Codes: G 0105 COLOREC CANCR SCR; COLNSCPY HI RISK, 25301 LESION REMOVAL COLONOSCOPY, 0529F INTRVL 3+YRS PTS CLNSCP DOCD * * The named appointment provid er may or may not be the originator of this progress note, and it is not deemed complete until electronically signed by the appointment provider. Sign off status: Pending * Provider: Raul Finney MD Date: 1 06/30/2023 Generated for Thierno valladares/Estevan/Samiritting on: 0 12/15/2024 08:50 AM EDT
--- OUTSIDE RECORDS SUMMARY | 2024-12-15 08:50 | XMS_ITS | Clinical Summary ---
Author Organization [facility] Address [address] [place] [phone] Phone Care Team Providers Care Health Care Facilities Inspector Name Role Phone Reddy Cortes DO Primary Care Provider [phone] Allergies Active Allergy Reactions Criticality Noted Date Comments Amlodipine Swelling 10/23/2024 Medications finasteride (PROSCAR) 5 mg tablet Take 5 mg by mouth every 2 (two) months. Active atorvastatin (LIPITOR) 40 MG tablet Take 1 tablet (40 mg total) by mouth daily. 90 tablet 3 10/23/2024 Active losartan (COZAAR) 100 MG tablet Take 1 tablet (100 mg total) by mouth every morning. 90 tablet 3 10/23/2024 Active omeprazole (PRILOSEC) 40 MG capsule Take 1 capsule (40 mg total) by mouth every morning. 90 capsule 3 10/23/2024 Active furosemide (LASIX) 20 MG tablet Take 1 tablet (20 mg total) by mouth daily. 30 tablet 5 10/23/2024 Active Active Problems Problem Noted Date Diagnosed Date Prostate cancer 10/23/2024 Overview (10/23/2024): Followed by urology Dr. Aguayo Adenomatous polyp of colon 10/23/2024 Assessment & Plan (10/23/2024 8:51 AM EDT): Had colonoscopy this year follow-up per GI recommendation Pulmonary nodules 10/23/2024 Assessment & Plan (10/23/2024 8:21 AM EDT): Stable due for LDCT Benign localized hyperplasia of prostate without urinary obstruction 10/21/2024 Lower urinary tract symptoms 10/21/2024 Polyp of colon 10/21/2024 Overview (10/23/2024): followed by Dr Finney Elevated PSA measurement 10/21/2024 Essential hypertension 10/21/2024 Assessment & Plan (10/23/2024 8:50 AM EDT): BP not at goal discussed options due to the edema with amlodipine patient's reluctant to go back on that. DC hydrochlorothiazide Rx for furosemide. Labs today Former smoker 10/21/2024 Assessment & Plan (10/23/2024 8:23 AM EDT): LDCT Impaired fasting glucose 10/21/2024 Overview (10/23/2024): Fasting labs today. Continue work on diet and exercise Assessment & Plan (10/23/2024 8:23 AM EDT): Repeat lab Mixed hyperlipidemia 10/21/2024 Obesity 10/21/2024 Sexual dysfunction 10/21/2024 Encounters Date Type Department Care Team Description 10/23/2024 8:34 AM EDT - 10/23/2024 11:59 PM EDT Hospital Encounter [facility] [address] [place] [address] Reddy Cortes, Discharge Disposition: Home or Self Care 10/23/2024 8:00 AM EDT Office Visit Paige Harvey [address] [place] [address] Reddy Cortes DO Essential hypertension (Primary Dx); Mixed hyperlipidemia; Prostate cancer; Pulmonary nodules; Impaired fasting glucose; Former smoker; Adenomatous polyp of colon, unspecified part of colon 10/23/2024 Telephone [facility] [address] [place] [address] Reddy Cortes DO 10/21/2024 Orders Only [facility] [address] [place] [address] Ai Herzog 10/14/2024 Refill [facility] [address] [place] [address] Reddy Cortes, DO Medication Refill 09/29/[address] [place] [address] Reddy Cortes, DO Appointment from Last 3 Months Immunizations Immunization Administration Dates Next Due Influenza High-Dose Quadriva lent Preservative Free IM 03/17/2022 Influenza High-Dose Trivalen t Preservative Free IM 03/03/2024,05/09/2019 Influenza Quadrivalent Adjuv anted Preservative Free IM 02/25/2021,02/23/2020 Influenza Quadrivalent Preservative Free IM 07/2017 Influenza Quadrivalent w/ Preservative IM 2016 Influenza Trivalent w/ Preservative IM ,05/12/2016,05/03/2015 Pneumococcal conjugate PCV13 03/24/2022 Pneumococcal conjugate PCV20 10/05/2022 Pneumococcal polysaccharide PPSV23 03/24/2022, RSV Vaccine (monovalent, adjuvanted) 04/11/2023 Tdap 03/24/2022 Family History Medical History Relation Comments Alcohol abuse Father Coronary artery disease Father Diabetes type II Father Hypertension Father No Known Problems Sister Relation Status Comments Father Mother Sister Social History Tobacco Use Types Packs/Day Years Used Date Smoking Tobacco: Former Cigarettes S tarted: 2020 Tobacco Cessation:Counseling Given: Not Answered Alcohol Use Standard Drinks/Week Comments Yes 2 (1 standard drink = 0.6 oz pur e alcohol) Education Answer Date Recorded Are you interested in more education? Not on zackary e 10/09/2024 Are you concerned about learning? Not on file 10/09/2024 No 10/09/2024 No 10/09/2024 Digital Access Answer Date Recorded No 10/09/2024 No 10/09/2024 Reliable internet access at home? Not on file 10/09/2024 Device with a working camera? 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 Not on file Not on file Not on file Last Filed Vital Signs Vital Sign Reading Time Taken Comments Blood Pressure 142/82 10/23/2024 7:48 AM EDT Pulse 88 10/23/2024 7:48 AM EDT Temperature 36.4 C (97.6 F) 10/23/2024 7:48 AM EDT Respiratory Rate 18 10/23/2024 7:48 AM EDT Oxygen Saturation 98% 10/23/2024 7:48 AM EDT Inhaled Oxygen Concentration - - Weight 97.6 kg (215 lb 3.2 oz) 10/23/2024 7:48 A M EDT Height - - Body Mass Index - - Plan of Treatment Health Maintenance Due Date Last Done Comments DEPRESSION SCREENING 1965 SMOKING Hx and SMOKELESS TOBACCO SCREENING 1966 HEPATITIS C SCREENING 1971 ZOSTER VACCINES (1 of 2) 1972 COLOGUARD 1998 COLONOSCOPY 1998 COLORECTAL CANCER SCREENING 1998 FIT TEST 1998 FOBT 1998 SIGMOIDOSCOPY 1998 VIRTUAL COLONOSCOPY 1998 ABDOMINAL AORTIC ANEURYSM (AAA) SCREENING 2018 COVID-19 VACCINE ( season) 2024 03/03/2024, 04/11/2023, 02/25/2021, Additional history exists BLOOD PRESSURE 04/25/2025 10/23/2024 CREATININE LEVEL 10/23/2025 10/23/2024 POTASSIUM LEVEL 10/23/2025 10/23/2024, 05/10/2023 LIPID PANEL 10/23/2029 10/23/2024, 07/0 11/2022, 12/01/2022, Additional history exists Adult Td,Tdap Booster 03/24/2032 03/24/2022 PNEUMOCOCCAL VACCINES (50+ years) Completed 10/05/2022, 03/24/2022, 03/24/2022, Additional history exists RSV VACCINE Completed 04/11/2023 HEPATITIS A VACCINES Aged Out No long er eligible based on patient's age to complete this topic HIB VACCINES Aged Out No longer eligi ble based on patient's age to complete this topic MENINGOCOCCAL VACCINES (ACWY) Aged Out No longer eligible based on patient's age to complete this topic MENINGOCOCCAL VACCINES (B) Aged Out N o longer eligible based on patient's age to complete this topic Medical Devices Not on file Procedures Procedure Name Priority Date/Time Associated Diagnosis Comments MICROALBUMIN/CREATINI NE RATIO, RANDOM URINE Routine 10/23/2024 9:04 AM EDT Essential hypertension Mixed hyperlipidemia Impaired fasting glucose HEMOGLOBIN A1C Routine 10/23/2024 8:55 AM EDT Essential hypertension Mixed hyperlipidemia Impaired fasting glucose CBC AND DIFFERENTIAL Routine 10/23/2024 8:55 AM EDT Essential hypertension Mixed hyperlipidemia Impaired fasting glucose LIPID PANEL Routine 10/23/2024 8:55 AM EDT Mixed hyperlipidemia COMPREHENSIVE METABOLIC PANEL Routine 10/23/2024 8:55 AM EDT Essential hypertension Mixed hyperlipidemia Impaired fasting glucose CT CHEST LUNG CANCER SCREENING INITIAL OR ANNUAL Routine 10/23/2024 8:44 AM EDT Former smoker from Last 3 Months Results * Microalbumin/creatinine ratio, random urine (10/23/2024 9:04 AM EDT) URINE MICROALBUMIN <1.2 0 - 2.3 mg/dL [facility] URINE CREATININE 107 mg/dL [facility] MICROALB/CRE RATIO NOT CALCULATED 0 - 20 mg/g Cre [facility] Comment:due to Microalbumin <1.2 Urine (Urine) 10/23/2024 9:0 4 AM EDT 10/23/2024 9:05 AM EDT us Reddy Cortes DO URINE ORDERABLES Final Result [facility] [address] [place] [address] * (ABNORMAL) Comprehensive metabolic panel (10/23/2024 8:55 AM EDT) SODIUM 135 133 - 146 mmol/L [facility] POTASSIUM 4.2 3.3 - 5.1 mmol/L [facility] CHLORIDE 96 96 - 108 mmol/L [facility] CO2 30 21 - 35 mmol/L [facility] BUN 22(H) 6 - 19 mg/dL [facility] CREATININE 1.20 0.5 - 1.5 mg/dL [facility] GLUCOSE 134(H) 70 - 99 mg/dL [facility] ALBUMIN 4.3 3.9 - 4.8 g/dL [facility] TOTAL PROTEIN 7.5 6.5 - 8.0 g/dL [facility] CALCIUM 9.8 8.4 - 10.3 mg/dL [facility] ALKALINE PHOSPHATASE 78 39 - 117 U/L [facility] TOTAL BILIRUBIN 0.5 0.0 - 1.2 mg/dL [facility] AST 41(H) 0 - 37 U/L [facility] ALT 47(H) 0 - 40 U/L [facility] GLOBULIN 3.2 1 - 4.8 g/dL [facility] EGFR 65 >59 mL/min/1.7 3m2 [facility] Comment:Estimated glomerular filtration rate calculated using the CKD-EPI refit equation. ANION GAP 13 10 - 20 mmol/L [facility] Blood 10/23/2024 8:55 AM EDT 10/23/2024 8:58 AM EDT us Reddy Cortes DO LAB BLOOD ORDERABLES Final Res ult [address] [address] * CBC and differential (10/23/2024 8:55 AM EDT) WBC 5.52 4.00 - 11.00 K/uL [facility] RBC 4.56 4.50 - 5.90 M/uL [facility] HGB 13.9 13.5 - 17.5 g/dL [facility] HCT 42.5 41.0 - 53.0 % [facility] PLT 247 150 - 450 K/uL [facility] MCV 93.2 80.0 - 100.0 fL [facility] MCH 30.5 27.0 - 31.0 pg [facility] MCHC 32.7 32.0 - 36.0 g/dL [facility] RDW 12.9 11.5 - 14.5 % [facility] MPV 9.7 8.4 - 12.0 fL [facility] NRBC 0.00 0.00 /100 WBCs [facility] ABSOLUTE NRBC 0.00 0.00 K/uL [facility] DIFF METHOD Auto [facility] NEUTS 56.6 48.0 - 76.0 % [facility] LYMPHS 30.8 18.0 - 41.0 % [facility] MONOS 9.4 4.0 - 11.0 % [facility] EOS 1.8 0.0 - 5.0 % [facility] BASOS 0.9 0.0 - 1.5 % [facility] Granulocytes, immature (%) 0.5 0.0 - 0.9 % [facility] ABSOLUTE NEUTS 3.12 1.92 - 7.60 K/uL [facility] ABSOLUTE LYMPHS 1.70 0.72 - 4.10 K/uL [facility] ABSOLUTE MONOS 0.52 0.16 - 1.10 K/uL [facility] ABSOLUTE EOS 0.10 0.00 - 0.50 K/uL [facility] ABSOLUTE BASOS 0.05 0.00 - 0.15 K/uL [facility] Granulocytes, immature 0.03 0.00 - 0.09 K/uL [facility] Blood 10/23/2024 8:55 AM EDT 10/23/2024 8:58 AM EDT us Reddy Cortes DO LAB BLOOD ORDERABLES Final Res ult [facility] [address] [place] [address] * (ABNORMAL) Hemoglobin A1c (10/23/2024 8:55 AM EDT) HEMOGLOBIN A1C 6.3(H) 4.3 - 5.8 % [facility] Blood 10/23/2024 8:55 AM EDT 10/23/2024 8:58 AM EDT Reddy Bronson [facility] LAB BLOOD ORDERABLES Final Res ult Performing Organization Address [facility]/ZIP Co de Phone Number [address] [address] * (ABNORMAL) Lipid panel (10/23/2024 8:55 AM EDT) HDL 60 mg/dL [facility] Comment: Interpretation <40 mg/dL: Low HDL cholesterol (major risk factor for CHD) Greater than or equal to 60 mg/dL: High HDL cholesterol ( negative risk factor for CHD) HDL - cholesterol is affected by a number of factors, e.g. smoking, excerise, hormones, sex and age. CHOLESTEROL 212 0 - 240 mg/dL [facility] TRIGLYCERIDES 209(H) 30 - 160 mg/dL [facility] LDL 110 50 - 129 mg/dL [facility] Comment: LDL levels in terms of risk for coronary heart disease: <100 mg/dL: Optimal 100-129 mg/dL: Near or above optimal 130-159 mg/dL: Borderline high 160-189 mg/dL: High >190 mg/dL: Very High CARDIAC RISK RATIO 3.5 3.4 - 5.0 C [facility] Blood 10/23/2024 8:55 AM EDT 10/23/2024 8:58 AM EDT Reddy Cortes LAB BLOOD ORDERABLES Final Res ult Performing Organization Address City/[facility]/ZIP Co de Phone Number [address] [address] from Last 3 Months Insurance MEDICARE PART A & B [facility] MEDICARE SUPPLEMENT MEDICARE PART A & B [facility] MEDICARE SUPPLEMENT MEDICARE PART A & B [facility] MEDICARE SUPPLEMENT MEDICARE PART A & B [facility] MEDICARE SUPPLEMENT MEDICARE PART A & B [facility] MEDICARE SUPPLEMENT MEDICARE PART A & B [facility] MEDICARE SUPPLEMENT Care Teams Health Care Facilities Inspector Relationship Specialty Start Date End Date Reddy Cortes DO [address] [place] [address] [email or web address] PCP - General Family Medicine 10/09/24 Additional Source Comments The information contained in this document represents components of the legal health record. It is not the complete legal health record.[facility]
--- OUTSIDE RECORDS SUMMARY | 2024-12-15 08:50 | XMS_ITS | Clinical Summary ---
Author Organization [facility] Address [address] [place] [address] Care Team Providers Care Truck Farmer Name Role Phone Unavailable Primary Care Provider Unavailabl e Social History Tobacco Use Types Packs/Day Years Used Date Smoking Tobacco: Never Assessed Sex and Gender Information Value Date Recorded Sex Assigned at Not on file Legal Sex Male 10:42 PM EDT Gender Identity Not on file Sexual Orientation Not on file Plan of Treatment Health Maintenance Due Date Last Done Comments Hepatitis C Screening 1955 DTaP/Tdap/Td (1 - Tdap) 1971 Pneumococcal 50+ years (1 of 1 - PCV) 2003 Zoster (Shingrix) (1 of 2) 2003 COVID-19 Vaccine ( - 2023-2 5 season) 2024 Influenza (#1) 2025 RSV (1 - 1-dose 75+ series) 2028 Abdominal Aorta Imaging Discontinued HPV Vaccine Aged Out No longer eligi ble based on patient's age to complete this topic Hep A Aged Out No longer eligi ble based on patient's age to complete this topic Hep B Aged Out No longer eligi ble based on patient's age to complete this topic Hib Aged Out No longer eligi ble based on patient's age to complete this topic Meningococcal ACWY Aged Out No longer eligible based on patient's age to complete this topic Zoster (Zostavax) Discontinued
--- OUTSIDE RECORDS SUMMARY | 2024-12-15 08:50 | XMS_ITS | Clinical Summary ---
Author Organization [facility] Address [address] [place] [address] Care Team Providers Care Associate Account Manager Name Role Phone Unavailable Primary Care Provider Unavailabl e Social History Tobacco Use Types Packs/Day Years Used Date Smoking Tobacco: Never Assessed Sex and Gender Information Value Date Recorded Sex Assigned at Not on file Legal Sex Male 5:54 AM EST Gender Identity Not on file Sexual Orientation Not on file Plan of Treatment Health Maintenance Due Date Last Done Comments Colorectal Cancer: COLONOSCO PY Screening every 10 yrs (or Modifier) 1955 Depression: Screening Annual ly using PHQ-2/9 in Adults 18 yrs or above (or HM Modifier)([facility]) 1971 Hepatitis C Virus Infection in Adolescents and Adults: Screening (or Modifier) ([facility]) 1971 SDMI Screening Reminder: Suzette tate for all adults ([facility]) 1971 Tobacco Smoking Cessation: i n Adults excluding Women: Behavioral and Pharmacotherapy Interventions ([facility]) 1971 DTaP/Tdap/Td Vaccines ([facility]) (1 - Tdap) 1972 Colorectal Cancer Screening 45 -75 Yrs (or HM Modifier ) 1998 Colorectal Cancer: FLEXIBLE SIGMOIDOSCOPY Screening every 5 yrs 1998 Colorectal Cancer: Fecal Imm unochemical Test (FIT) Annually [facility] 1998 Colorectal Cancer: High-sens itivity gFOBT Screening Annually [facility] 1998 Colorectal Cancer: Stool Col oguard Screening every 3 yrs 1998 Colorectal Cancer:CT Colonography Screening every 5 yr s 1998 Pneumococcal Vaccination Scr eening: Patients 50+ yrs of age ([facility]) (1 of 1 - PCV) 2003 Zoster/Shingles Vaccine Seri es Screening: Adults aged 18+ yrs (or HM Modifiers)([facility]) (1 of 2) 2003 COVID-19 Vaccine Screening: Initial Series and Booster Status ([facility]) (2023- season) 2024 Flu Vaccination: Ages 65+: Y early High Dose Recommended (or Modifier)([facility]) 12/26/2024 RSV Vaccines (1 - 1-dose 75+ series) 2028 Medical Devices Not on file Insurance MEDICARE
[2024-12-15 10:05] LABS: PSA,Total (Free>4and<10) 8.42 ng/mL (0.00-4.00)
[2024-12-17 13:13] LABS: Free Prostate Spec Ag 1.2 ng/mL; Percent Free Prostate Spec Ag 17 % (calc) (>25)
== END 2024-12-15 08:44 | disposition home or self-care (01) ==
LOC: HO.LAB 08:43
PROVIDERS: PCP Family Medicine; Visit Provider Urology
DX: C61 Malignant neoplasm of prostate (principal); Z12.5 Encounter for screening for malignant neoplasm of prostate
CPT/HCPCS: 36415; 84153; 84154

== ENCOUNTER 2024-12-25 08:50 | Outpatient (AMB) | payer MEDICARE, OTHER, SELFPAY ==
--- OUTSIDE RECORDS SUMMARY | 2024-04-29 06:10 | XMS_ITS ---
Author Organization [facility] Address [address] [place] [id number] Care Team Providers Care Depositing Machine Operator Name Role Phone ANDERS PECK, RAFAT Primary Care Provider Amari Richard Jr [phone] REASON FOR VISIT screening Encounters Encounter Location Date Provider Diagnosis [facility] [place] [address] [place] [id number] 04/29/2024 Amari Finney Jr Colon cancer screening [...] * ALYSIA DERAS RDOB:1955 (69 yo M)Acc No.[id number]:04/29/2024 COLON WITH MAC Patient: ALYSIA NEAL Provider: Raul Finney MD :1955 A ge:68 Y S ex:Male Date:04/29/2024 Address: [address] [id number] Pcp:RAFAT MCNAMARA MD Subjective: * Chief Complaints: * 1 . Screening. * Medical History: Objective: * Vitals: Assessment: * Assessment: 1. C olon cancer screening - Z12.11 (Primary) 2 . P ersonal history of colonic polyps - Z86.0100 3 . C olon polyps - K63.5 Plan: * Treatment: * Procedure Codes: G 0105 COLOREC CANCR SCR; COLNSCPY HI RISK, 830[address] LESION REMOVAL COLONOSCOPY, 0529F INTRVL 3+YRS PTS CLNSCP DOCD * * The named appointment provid er may or may not be the originator of this progress note, and it is not deemed complete until electronically signed by the appointment provider. Sign off status: Pending * Provider: Raul Finney MD Date: 1 06/30/2023 Generated for Thierno valladares/Estevan/Samiritting on: 0 12/25/2024 09:06 AM EDT
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
--- OUTSIDE RECORDS SUMMARY | 2024-12-25 09:06 | XMS_ITS | Clinical Summary ---
Author Organization [facility] Address [address] [place] [address] Care Team Providers Care Forest Engineer Name Role Phone Unavailable Primary Care Provider [...] 2028 Abdominal Aorta Imaging Discontinued HPV Vaccine (No Doses Required) Completed Hep A Aged Out No longer eligi [...]
--- OUTSIDE RECORDS SUMMARY | 2024-12-25 09:06 | XMS_ITS | Clinical Summary ---
Author Organization [facility] Address [address] [place] [phone] Phone Care Team Providers Care Entry Level Staff Accountant Name Role Phone Reddy Cortes DO Primary Care Provider [phone] Allergies Active Allergy Reactions Criticality Noted Date [...] PM EDT Hospital Encounter [facility] [address] [place] [address] Reddy Cortes, Discharge Disposition: Home or Self Care 10/23/2024 8:00 AM EDT Office Visit [facility] Harvey [address] [place] [address] Reddy Cortes DO Essential hypertension (Primary Dx); Mixed hyperlipidemia; Prostate cancer; Pulmonary nodules; Impaired fasting glucose; Former smoker; Adenomatous polyp of colon, unspecified part of colon 10/23/2024 Telephone [facility] [address] [place] [address] Reddy Cortes DO 10/21/2024 Orders Only [facility] [address] [place] [address] Ai Herzog 10/14/2024 Refill [facility] [address] [place] [address] Reddy Cortes, DO Medication Refill 09/29/[address] [place] [address] Reddy Cortes, DO Appointment from Last 3 [...] URINE MICROALBUMIN <1.2 0 - 2.3 mg/dL [facility] URINE CREATININE 107 mg/dL SMALL MACHINE BINDERY OPERATOR [facility] MICROALB/CRE RATIO NOT CALCULATED 0 - 20 mg/g Cre [facility] Comment:due to Microalbumin <1.2 Urine (Urine) 10/23/2024 9:0 4 AM EDT 10/23/2024 9:05 AM EDT us Reddy Cortes DO URINE ORDERABLES Final Result [facility] [address] [place] [address] * (ABNORMAL) Comprehensive metabolic panel (10/23/2024 8:55 AM EDT) SODIUM 135 133 - 146 mmol/L [facility] POTASSIUM 4.2 3.3 - 5.1 mmol/L [facility] CHLORIDE 96 96 - 108 mmol/L [facility] CO2 30 21 - 35 mmol/L [facility] BUN 22(H) 6 - 19 mg/dL [facility] CREATININE 1.20 0.5 - 1.5 mg/dL [facility] GLUCOSE 134(H) 70 - 99 mg/dL [facility] ALBUMIN 4.3 3.9 - 4.8 g/dL [facility] TOTAL PROTEIN 7.5 6.5 - 8.0 g/dL [facility] CALCIUM 9.8 8.4 - 10.3 mg/dL [facility] ALKALINE PHOSPHATASE 78 39 - 117 U/L [facility] TOTAL BILIRUBIN 0.5 0.0 - 1.2 mg/dL [facility] AST 41(H) 0 - 37 U/L [facility] ALT 47(H) 0 - 40 U/L [facility] GLOBULIN 3.2 1 - 4.8 g/dL [facility] EGFR 65 >59 mL/min/1.7 3m2 [facility] Comment:Estimated glomerular filtration rate calculated using the CKD-EPI refit equation. ANION GAP 13 10 - 20 mmol/L [facility] Blood 10/23/2024 8:55 AM EDT 10/23/2024 8:58 AM EDT us Reddy Cortes DO LAB BLOOD ORDERABLES Final Res ult [address] [address] * CBC and differential (10/23/2024 8:55 AM EDT) WBC 5.52 4.00 - 11.00 K/uL [facility] RBC 4.56 4.50 - 5.90 M/uL [facility] HGB 13.9 13.5 - 17.5 g/dL [facility] HCT 42.5 41.0 - 53.0 % [facility] PLT 247 150 - 450 K/uL [facility] MCV 93.2 80.0 - 100.0 fL [facility] MCH 30.5 27.0 - 31.0 pg [facility] MCHC 32.7 32.0 - 36.0 g/dL [facility] RDW 12.9 11.5 - 14.5 % [facility] MPV 9.7 8.4 - 12.0 fL [facility] NRBC 0.00 0.00 /100 WBCs [facility] ABSOLUTE NRBC 0.00 0.00 K/uL [facility] DIFF METHOD Auto [facility] NEUTS 56.6 48.0 - 76.0 % [facility] LYMPHS 30.8 18.0 - 41.0 % [facility] MONOS 9.4 4.0 - 11.0 % [facility] EOS 1.8 0.0 - 5.0 % [facility] BASOS 0.9 0.0 - 1.5 % [facility] Granulocytes, immature (%) 0.5 0.0 - 0.9 % [facility] ABSOLUTE NEUTS 3.12 1.92 - 7.60 K/uL [facility] ABSOLUTE LYMPHS 1.70 0.72 - 4.10 K/uL [facility] ABSOLUTE MONOS 0.52 0.16 - 1.10 K/uL [facility] ABSOLUTE EOS 0.10 0.00 - 0.50 K/uL [facility] ABSOLUTE BASOS 0.05 0.00 - 0.15 K/uL [facility] Granulocytes, immature 0.03 0.00 - 0.09 K/uL [facility] Blood 10/23/2024 8:55 AM EDT 10/23/2024 8:58 AM EDT us Reddy Cortes DO LAB BLOOD ORDERABLES Final Res ult [facility] [address] [place] [address] * (ABNORMAL) Hemoglobin A1c (10/23/2024 8:55 AM EDT) HEMOGLOBIN A1C 6.3(H) 4.3 - 5.8 % [facility] Blood 10/23/2024 8:55 AM EDT 10/23/2024 8:58 AM EDT Reddy Bronson [facility] LAB BLOOD ORDERABLES Final Res ult Performing Organization Address [facility]/ZIP Co de Phone Number [address] [address] * (ABNORMAL) Lipid panel (10/23/2024 8:55 AM EDT) HDL 60 mg/dL [facility] Comment: Interpretation <40 mg/dL: Low HDL cholesterol (major risk factor for CHD) Greater than or equal to 60 mg/dL: High HDL cholesterol ( negative risk factor for CHD) HDL - cholesterol is affected by a number of factors, e.g. smoking, excerise, hormones, sex and age. CHOLESTEROL 212 0 - 240 mg/dL [facility] TRIGLYCERIDES 209(H) 30 - 160 mg/dL [facility] LDL 110 50 - 129 mg/dL [facility] Comment: LDL levels in terms of risk for coronary heart disease: <100 mg/dL: Optimal 100-129 mg/dL: Near or above optimal 130-159 mg/dL: Borderline high 160-189 mg/dL: High >190 mg/dL: Very High CARDIAC RISK RATIO 3.5 3.4 - 5.0 C [facility] Blood 10/23/2024 8:55 AM EDT 10/23/2024 8:58 AM EDT Reddy Cortes LAB BLOOD ORDERABLES Final Res ult Performing Organization Address City/[facility]/ZIP Co de Phone Number [address] [address] from Last 3 Months Insurance MEDICARE PART A & B [facility] [employer] MEDICARE SUPPLEMENT MEDICARE PART A & B [facility] [employer] MEDICARE SUPPLEMENT MEDICARE PART A & B [facility] MEDICARE SUPPLEMENT MEDICARE PART A & B [facility] MEDICARE SUPPLEMENT MEDICARE PART A & B [facility] MEDICARE SUPPLEMENT MEDICARE PART A & B [facility] [employer] MEDICARE SUPPLEMENT Care Teams Entry Level Staff Accountant Relationship Specialty Start Date End Date Reddy Cortes DO [address] [place] [address] [email or web address] PCP - General Family Medicine 10/09/24 Additional Source Comments The information contained in this document represents components of the legal health record. It is not the complete legal health record.[facility]
== END 2024-12-25 09:40 | disposition home or self-care (01) ==
LOC: HO.HUSH 08:50
PROVIDERS: PCP Family Medicine; Visit Provider Urology
DX: C61 Malignant neoplasm of prostate (principal); N32.89 Other specified disorders of bladder
CPT/HCPCS: 99213; G2211

== ENCOUNTER 2025-05-12 09:02 | Outpatient (REF) | payer MEDICARE, OTHER, SELFPAY ==
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
--- OUTSIDE RECORDS SUMMARY | 2025-05-12 10:17 | XMS_ITS | Encounter Summary ---
Author Organization [facility] Address [address] [place] [address] Phone Care Team Providers Care Gearcase Assembler Name Role Phone Reddy Cortes DO Primary Care Provider [phone] Encounter Details Date Type Department Care Team (Late st Contact Info) Description 04/07/2025 Orders Only [facility] Medicine [address] [place] [address] Reddy Cortes DO [address] [place] [address] [email or web address] Social History Tobacco Use Types Packs/Day Years Used Date Smoking Tobacco: Former Cigarettes S tarted: 2020 Smokeless Tobacco: Never Alcohol Use Standard Drinks/Week Comments Yes 2 [...] file Not on file Not on file documented as of this encounter Plan of Treatment Upcoming Encounters Date Type Department Care Team (Late st Contact Info) Description 09/21/2025 8:30 AM EDT Office Visit [facility] [address] [place] [address] [place] [address] [email or web address] documented as of this encounter Visit Diagnoses Not on filedocumented in this encounter Additional Health Concerns Assessment Noted Time PHQ-9 Depression Total Score: 0 01/23/20 5:14 PM EDT PHQ-2 Depression Total Score: 0 01/23/20 5:14 PM EDT documented as of this encounter Care Teams Gearcase Assembler Relationship Specialty Start Date End [place] [address] [email or web address] PCP - General Family Medicine 10/09/24 documented as of this encounter Additional Source Comments The information contained in this document represents components of the legal health record. It is not the complete legal health record.[facility]
--- OUTSIDE RECORDS SUMMARY | 2025-05-12 10:18 | XMS_ITS | Clinical Summary ---
Author Organization [facility] Address [address] [place] [address] Care Team Providers Care Safety Spec Name Role Phone Unavailable Primary Care Provider [...] of 2) 2003 COVID-19 Vaccine ( - 2024-2 6 season) 2025 Influenza (#1) 2025 RSV (1 - 1-dose [...]
--- OUTSIDE RECORDS SUMMARY | 2025-05-12 10:18 | XMS_ITS | Clinical Summary ---
Author Organization [facility] Address [address] [place] [id number] Phone Care Team Providers Care Olive Brine Tester Name Role Phone Reddy Cortes DO Primary Care Provider [phone] Allergies Active Allergy Reactions Criticality Noted Date Comments Amlodipine Swelling 10/23/2024 Medications finasteride (PROSCAR) 5 mg tablet Take 5 mg by mouth every 2 (two) months. Active atorvastatin (LIPITOR) 40 MG tablet Take 1 tablet (40 mg total) by mouth daily. 90 tablet 3 5 Active losartan (COZAAR) 100 MG tablet Take 1 tablet (100 mg total) by mouth every morning. 90 tablet 3 5 Active omeprazole (PRILOSEC) 40 MG capsule Take 1 capsule (40 mg total) by mouth every morning. 90 capsule 3 5 Active hydroCHLOROthi azide 25 MG tablet Take 1 tablet (25 mg total) by mouth daily. 90 tablet 1 5 Active dilTIAZem (CARDIZEM CD) 180 MG 24 hr capsule TAKE 1 CAPSULE BY MOUTH EVERY DAY 90 capsule 3 5 Active dilTIAZem (CARDIZEM CD) 180 MG 24 hr capsule Take 1 capsule (180 mg total) by mouth daily. 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 Aguayo Adenomatous polyp of colon 10/23/2024 Overview (03/23/2025): Last colonoscopy 04/30/2024 Dr. Finney: Hospital Assessment & Plan (10/23/2024 8:51 AM EDT): Had colonoscopy this year follow-up per GI recommendation Pulmonary nodules 10/23/2024 Assessment & Plan (01/29/2025 10:18 AM EDT): had a low-dose CT scan on December 26, 2024 Showed the pulmonary nodules to be stable repeat in 1 year Assessment & Plan (10/23/2024 8:21 AM EDT): [...] Encounters Date Type Department Care Team Description 04/26/[address] [place] [address] Reddy Cortes, Medication Refill 04/07/2025 8:30 AM EST Office Visit [address] [place] [address] Reddy Cortes, Other chest pain (Primary Dx); Essential hypertension; Chest wall pain; RBBB (right bundle branch block with left anterior fascicular block) 04/07/2025 Orders Only [address] [place] [address] Reddy Cortes DO 04/07/[address] [place] [address] Jessica Saleem, DANNY ETT 03/23/2025 8:30 AM EDT Office Visit [address] [place] [address] Reddy Cortes DO Essential hypertension (Primary Dx) 03/23/2025 Orders Only [address] [place] [address] ProviderTaina MD 03/23/[address] [place] [address] Reddy Cortes, Request For Records (Colonoscopy) from Last 3 Months Immunizations Immunization Administration Dates Next Due INFLUENZA, SPLIT VIRUS, TRIV ALENT W/ PRESERVATIVE IM 03/28/2023,05/12/2016,05/03/2015 Influenza High-Dose Quadriva lent Preservative Free IM 03/17/2022 Influenza High-Dose Trivalen t Preservative Free IM 03/03/2024,05/09/2019 Influenza Quadrivalent Adjuv anted Preservative Free IM 02/25/2021,02/23/2020 Influenza Quadrivalent Preservative Free IM 07/2017 Influenza Quadrivalent w/ Preservative IM 2016 Pneumococcal conjugate PCV13 03/24/2022 Pneumococcal conjugate PCV20 [...] Cigarettes S tarted: 2020 Smokeless Tobacco: Never Tobacco Cessation:Counseling Given: Not Answered Alcohol Use [...] Sign Reading Time Taken Comments Blood Pressure 133/79 04/07/2025 8:26 AM EST Pulse 82 04/07/2025 8:26 AM EST Temperature 36.1 C (97 F) 04/07/2025 8:21 AM EST Respiratory Rate 18 04/07/2025 8:21 AM EST Oxygen Saturation 93% 04/07/2025 8:21 AM EST Inhaled Oxygen Concentration - - Weight 98.3 kg (216 lb 12.8 oz) 04/07/2025 8:21 AM EST Height 182 cm (5' 11.65 ) 03/23/2025 8:15 AM EDT Body Mass Index 29.69 03/23/2025 8:15 AM EDT Plan of Treatment Upcoming Encounters Date Type Department Care Team (Late st Contact Info) Description 09/21/2025 8:30 AM EDT Office Visit [facility] [address] [place] [address] Reddy Cortes DO [address] [place] [phone] [email or web address] Health Maintenance Due Date Last Done Comments SMOKING Hx and SMOKELESS TOBACCO SCREENING 1966 HEPATITIS C SCREENING 1971 ZOSTER VACCINES (1 of 2) 1972 COLOGUARD 1998 FIT TEST 1998 FOBT 1998 SIGMOIDOSCOPY 1998 VIRTUAL COLONOSCOPY 1998 ABDOMINAL AORTIC ANEURYSM (AAA) SCREENING 2018 COVID-19 VACCINE ( season) 2025 03/27/2025, 03/03/2024, 04/11/2023, Additional history exists BLOOD PRESSURE 10/05/2025 04/07/2025 DEPRESSION SCREENING 01/22/2026 01/22/2025, 01/23/20 25 CREATININE LEVEL 04/14/2026 04/14/2025, 10/23/2024 POTASSIUM LEVEL 04/14/2026 04/14/2025, 05/2 01/2025, 05/10/2023 LIPID PANEL 10/23/2029 10/23/2024, 07/0 11/2022, 12/01/2022, Additional history exists Adult Td,Tdap Booster 03/24/2032 03/24/2022 COLONOSCOPY 04/29/2034 04/29/2024 COLORECTAL CANCER SCREENING 04/29/2034 PNEUMOCOCCAL VACCINES (50+ years) Completed 10/05/2022, 03/24/2022, 03/24/2022, Additional history exists RSV VACCINE Completed 04/11/2023 INFLUENZA VACCINE Completed 02/27/2025, , 03/28/2023, Additional history exists HEPATITIS A VACCINES Aged Out No long [...] Procedure Name Priority Date/Time Associated Diagnosis Comments CBC AND DIFFERENTIAL Routine 04/14/2025 9:58 AM EST Other chest pain Essential hypertension COMPREHENSIVE METABOLIC PANEL (CMP) Routine 04/14/2025 9:58 AM EST Other chest pain Essential hypertension CBC AND DIFFERENTIAL Routine 04/14/2025 9:58 AM EST Other chest pain Essential hypertension ECG 12-LEAD Routine 04/07/2025 9:24 AM EST Other chest pain Essential hypertension LIPID PANEL Routine 10/23/2024 8:55 AM EDT Mixed hyperlipidemia HM COLONOSCOPY FOR RESULT ENTRY ONLY Routine 04/29/2024 1:44 PM EST from Last 3 Months or Most Recently Relevant to Health Maintenance Results * (ABNORMAL) Comprehensive Metabolic Panel (CMP) (04/14/2025 9:58 AM EST) Sodium 136 136 - 145 mmol/L 04/14/2025 2:21 PM [facility] Potassium 3.9 3.4 - 5.1 mmol/L 04/14/2025 2:21 PM [facility] Chloride 98 98 - 107 mmol/L 04/14/2025 2:21 PM [facility] CO2 26 20 - 31 mmol/L 04/14/2025 2:21 PM [facility] Anion Gap 12 3 - 17 mmol/L 04/14/2025 2:21 PM [facility] BUN 16 6 - 23 mg/dL 04/14/2025 2:21 PM [facility] Creatinine 1.20 0.60 - 1.30 mg/dL 04/14/2025 2:21 PM [facility] eGFR 65 >59 mL/min/1.7 3m2 04/14/2025 2:21 PM [facility] Comment:Estimated glomerular filtration rate calculated using the CKD-EPI refit equation. Glucose 152(H) 70 - 99 mg/dL 04/14/2025 2:21 PM [facility] Calcium 9.3 8.5 - 10.5 mg/dL 04/14/2025 2:21 PM [facility] AST 34 <40 U/L 04/14/2025 2:21 PM [facility] ALT 42 <50 U/L 04/14/2025 2:21 PM [facility] Alkaline Phosphatase 79 40 - 130 U/L 04/14/2025 2:21 PM [facility] Bilirubin, Total 0.6 0.0 - 1.2 mg/dL 04/14/2025 2:21 PM [facility] Total Protein 7.3 6.4 - 8.3 g/dL 04/14/2025 2:21 PM [facility] Albumin 4.2 3.5 - 5.2 g/dL 04/14/2025 2:21 PM [facility] Globulin 3.1 1.9 - 4.1 g/dL 04/14/2025 2:21 PM [facility] Blood (Blood) Venipuncture / Unknown 04/14/2025 9:58 AM EST 04/14/2025 9:58 AM EST us Reddy Cortes DO LAB BLOOD BKR ORDERABLES Final Result Performing Organization Address City/State/[facility] Co de Phone Number [address] [address] * CBC and Differential (04/14/2025 9:58 AM EST) WBC 5.89 4.00 - 11.00 K/uL 04/14/2025 1:49 PM [facility] RBC 4.79 4.50 - 5.90 M/uL 04/14/2025 1:49 PM [facility] Hemoglobin 14.5 13.5 - 17.5 g/dL 04/14/2025 1:49 PM [facility] Hematocrit 44.2 41.0 - 53.0 % 04/14/2025 1:49 PM [facility] MCV 92.3 80.0 - 100.0 fL 04/14/2025 1:49 PM [facility] MCH 30.3 27.0 - 31.0 pg 04/14/2025 1:49 PM [facility] MCHC 32.8 32.0 - 36.0 g/dL 04/14/2025 1:49 PM [facility] MPV 9.8 8.4 - 12.0 fL 04/14/2025 1:49 PM [facility] RDW-CV 13.0 11.5 - 14.5 % 04/14/2025 1:49 PM [facility] PLT 243 150 - 450 K/uL 04/14/2025 1:49 PM [facility] Neutrophils 56.8 % 04/14/2025 1:49 PM [facility] Lymphocytes 32.1 % 04/14/2025 1:49 PM [facility] Monocytes 8.1 % 04/14/2025 1:49 PM [facility] Eosinophils 1.7 % 04/14/2025 1:49 PM [facility] Basophils 0.8 % 04/14/2025 1:49 PM [facility] Imm Grans 0.5 % 04/14/2025 1:49 PM [facility] NRBC 0.0 <=0.0 /100 WBCs 04/14/2025 1:49 PM [facility] Absolute Neutrophils 3.34 1.92 - 7.60 K/uL 04/14/2025 1:49 PM [facility] Absolute Lymphocytes 1.89 0.72 - 4.10 K/uL 04/14/2025 1:49 PM [facility] Absolute Monocytes 0.48 0.16 - 1.10 K/uL 04/14/2025 1:49 PM [facility] Absolute Eosinophils 0.10 0.00 - 0.50 K/uL 04/14/2025 1:49 PM [facility] Absolute Basophils 0.05 0.00 - 0.15 K/uL 04/14/2025 1:49 PM [facility] Absolute Imm Grans 0.03 0.00 - 0.09 K/uL 04/14/2025 1:49 PM [facility] Absolute NRBC 0.00 <=0.00 K cells/uL 04/14/2025 1:49 PM [facility] Absolute Neutrophils 3.34 1.92 - 7.60 K/uL 04/14/2025 1:49 PM [facility] Comment:Automated cell count . Manual ANC may differ if performed. Diff Type Auto 04/14/2025 1:49 PM [facility] Blood (Blood) Venipuncture / Unknown 04/14/2025 9:58 AM EST 04/14/2025 9:58 AM EST Reddy Cortes DO LAB BLOOD BKR ORDERABLES Final Result Performing Organization Address City/[facility]/ZIP Co de Phone Number [address] [address] * ECG 12-LEAD (04/07/2025 9:24 AM EST) Reddy Bronson [employer] DO ECG ORDERABLES Final Result Performing Organization Address City/[facility] Co de Phone Number EXTERNAL NON-INTERFACED REF LAB * (ABNORMAL) Lipid panel (10/23/2024 8:55 AM EDT) HDL 60 mg/dL [facility] Comment: Interpretation <40 mg/dL: Low HDL cholesterol (major risk factor for CHD) Greater than or equal to 60 mg/dL: High HDL cholesterol ( negative risk factor for CHD) HDL - cholesterol is affected by a number of factors, e.g. smoking, excerise, hormones, sex and age. CHOLESTEROL 212 0 - 240 mg/dL [facility] TRIGLYCERIDES 209(H) 30 - 160 mg/dL [facility] LDL 110 50 - 129 mg/dL [facility] Comment: LDL levels in terms of risk for coronary heart disease: <100 mg/dL: Optimal 100-129 mg/dL: Near or above optimal 130-159 mg/dL: Borderline high 160-189 mg/dL: High >190 mg/dL: Very High CARDIAC RISK RATIO 3.5 3.4 - 5.0 [facility] Blood 10/23/2024 8:55 AM EDT 10/23/2024 8:58 AM EDT Reddy Cortes DO LAB BLOOD BKR ORDERABLES Final Result [facility] [address] [place] [address] * COLONOSCOPY FOR RESULT ENTRY ONLY (04/29/2024 1:44 PM EST) Historical Provider HEALTH MAINTENANCE Final Result from Last 3 Months or Most Recently Relevant to Health Maintenance Insurance MEDICARE PART A & B [facility] [employer] MEDICARE SUPPLEMENT LUIS MIGUEL MORROW [id number] MEDICARE PART A & B [employer] MEDICARE SUPPLEMENT MEDICARE PART A & B [facility] EXT[employer]ION MEDICARE SUPPLEMENT MEDICARE PART A & B [facility] MEDICARE SUPPLEMENT MEDICARE PART A & B [facility] [employer] MEDICARE SUPPLEMENT MEDICARE PART A & B [facility] [employer] MEDICARE SUPPLEMENT LUIS MIGUEL MORROW [id number] Care Teams Olive Brine Tester Relationship Specialty Start Date End Date Reddy Cortes DO [address] [place] [phone] [email or web address] PCP - General Family Medicine 10/09/24 Additional Source Comments The information contained in this document represents components of the legal health record. It is not the complete legal health record.[facility]
--- OUTSIDE RECORDS SUMMARY | 2025-05-12 10:18 | XMS_ITS | Clinical Summary ---
Author Organization [facility] linic Address [address] [place] [address] Care Team Providers Care Business Services Tech Name Role Phone Unavailable Primary Care Provider Unavailabl e Social History Tobacco Use Types Packs/Day Years Used Date Smoking Tobacco: Never Assessed Sex and Gender Information Value Date Recorded Sex Assigned at Not on file Legal Sex Male 5:54 AM EST Gender Identity Not on file Sexual Orientation Not on file Plan of Treatment Not on file Medical Devices Not on file Insurance MEDICARE
[2025-05-12 10:26] LABS: PSA,Total (Free>4and<10) 6.31 ng/mL (0.00-4.00)
[2025-05-13 12:44] LABS: Free Prostate Spec Ag 0.9 ng/mL; Percent Free Prostate Spec Ag 14 % (calc) (>25)
== END 2025-05-12 09:03 | disposition home or self-care (01) ==
LOC: HO.LAB 09:02
PROVIDERS: PCP Family Medicine; Visit Provider Urology
DX: C61 Malignant neoplasm of prostate (principal); Z12.5 Encounter for screening for malignant neoplasm of prostate
CPT/HCPCS: 36415; 84153; 84154